=== PATIENT | female | born 1965 | race Caucasian/White ===

== ENCOUNTER 2017-02-22 12:16 | Inpatient (IN) | payer OTHER ==
[2017-02-22] MEDS ORDERED: IOPAMIDOL 300 (61%) 100 ML VIAL IV ONE (12:17)
[2017-02-22 12:52] LABS: SPECIFIC GRAVITY 1.015 (1.001-1.030); URINE BILIRUBIN NEGATIVE (NEGATIVE); URINE BLOOD NEGATIVE (NEGATIVE); URINE GLUCOSE (UA) NEGATIVE (NEGATIVE); URINE LEUKOCYTE ESTERASE TRACE (NEGATIVE); URINE NITRITE NEGATIVE (NEGATIVE); URINE PROTEIN 1+ (NEGATIVE); URINE UROBILINOGEN NORMAL (0-1 mg/dl)
[2017-02-22] MEDS ORDERED: ONDANSETRON 4 MG/2ML 2 ML VIAL ONE (12:53)
[2017-02-22] MEDS ORDERED: SODIUM CHLORIDE 0.9% 1,000 ML ONE (12:53)
[2017-02-22] MEDS ORDERED: HYDROMORPHONE HCL 1 MG/ML SYRINGE ONE ×2 (12:54→15:53)
[2017-02-22 12:58] LABS: URINE APPEARANCE CLEAR; URINE COLOR AMBER
[2017-02-22 13:04] LABS: ABSOLUTE NEUTROPHIL COUNT 9.8 K/mm3 (1.8-7.7); BASO % 0.3 % (0.2-1.0); EOS # 0.1 (0.0-0.5); EOS % 0.7 % (0.9-2.9); HEMATOCRIT 46.3 % (37.0-47.0); HEMOGLOBIN 15.5 gm/l (12.0-16.0); IMM NEUT% 0.3 % (0-1); LYMPH # 1.7 (1.0-4.8); LYMPH % 14.1 % (15-45); MEAN CORPUSCULAR HEMOGLOBIN 30.5 pg (27.0-31.0); MEAN CORPUSCULAR HGB CONC 33.5 g/dl (33.0-37.0); MEAN PLATELET VOLUME 11.4 fl (7.4-10.4); MONO # 0.6 (0.0-0.8); MONO % 4.8 % (4-12); NEUT % 79.8 % (43-75); PLATELET COUNT 287 K/mm3 (130-400); RED CELL DISTRIBUTION WIDTH 12.4 % (11.5-14.5)
[2017-02-22 13:11] LABS: URINE RBC 0-1 /hpf
[2017-02-22 13:12] LABS: URINE BACTERIA 1+
[2017-02-22 13:17] LABS: ALB/GLOB RATIO 1.3 (>1.0); ALBUMIN 5.1 gm/dL (3.5-5.7); CALCIUM 10.4 mg/dL (8.6-10.3)
--- NOTE | 2017-02-22 15:49 | CT ---
Exam Type: ABD/PELVIS W/ CON Date and Time: 02/22/2017 1:00 PM Clinical information: Lower abdominal pain for one day. Comparison: CT abdomen pelvis with contrast 03/11/2015 Technique: Contiguous axial 4 mm images were obtained from the lung bases through the pelvis after the uneventful IV administration of 100 cc of Isovue-300. Sagittal and coronal reformations with high resolution lung algorithm images were also obtained at this time. CT DI: 17.4 DLP 825.3 FINDINGS: Lung base :No abnormality is identified at the lung bases. Visualized heart:There is no pericardial effusion. LIVER: A vague area of hypodensity is present within the anterior segment right lobe of the liver as seen on image 22 measuring approximately 2.4 x 2.3 cm. This was identified as a hemangioma on prior study. The remainder of the liver is unremarkable. BILE DUCTS: normal caliber. GALLBLADDER: Surgically absent. PANCREAS: within normal limits. SPLEEN: within normal limits. ADRENALS: within normal limits. KIDNEYS: within normal limits. Stomach and small BOWEL: Stomach is unremarkable. The duodenum and the proximal jejunum are normal. Multiple dilated loops of mid jejunal and ileal bowel are identified with multiple air-fluid levels. Transition zone may be present in the right lower quadrant within the terminal ileum just before the cecum. This is best seen on coronal image 29 and axial image 78. However, just past this the bowel again becomes dilated and fluid-filled as it enters into the cecum. There is mild inflammatory change to the terminal ileum as seen on prior study. Large bowel: Air and stool are noted within the large bowel. Much of the distal large bowel is decompressed limiting assessment. LYMPH NODES: No enlarged mesenteric lymph nodes. PERITONEUM: no ascites or free air, no fluid collection. VESSELS: within normal limits RETROPERITONEUM: within normal limits. ABDOMINAL WALL: within normal limits. Bladder: Decompressed. Uterus and adnexa: IUD is present. Otherwise unremarkable. BONES: within normal limits. IMPRESSION: Small bowel obstruction is identified with transition zone in the expected location of the terminal ileum though bowel loop after this point are also dilated and fluid-filled. Otherwise no specific transition zone is noted. Differential considerations could include ileus or less likely enteritis. As mentioned on prior study consideration for inflammatory bowel disease could also be made. As the patient has had multiple prior surgeries and adhesions is most likely. Other incidental findings as above. Findings were called to Dr. Hurt at approximately 1545 hours on 02/22/2017.
[2017-02-22] MEDS ORDERED: SODIUM CHLORIDE 0.9% 100 ML IV ONE (15:53)
[2017-02-22] MEDS ORDERED: PROMETHAZINE HCL 25 MG/ML VIAL ONE (15:53)
[2017-02-22 16:40] VITALS: BMI 34.6
[2017-02-22] MEDS ORDERED: SODIUM CHLORIDE 0.9% FLUSH 10 ML ONE (16:41)
[2017-02-22] MEDS ORDERED: BLISTEX LIPSTICK 1 EACH TP PRN (16:53)
[2017-02-22] MEDS ORDERED: MENTHOL/CETYLPYRD 1 EACH LOZENGE PO PRN (16:53)
[2017-02-22] MEDS ORDERED: PROMETHAZINE HCL 25 MG/ML VIAL IM PRN (16:58)
--- NOTE | 2017-02-22 17:06 | PDOC1 ---
HPI: Date of Admission: 02/22/17 Chief Complaint: abdominal pain/nausea History of Present Illness: 51 y/o F with history of bowel resection for endometriosis who had a sudden onset of pain/nausea/vomiting last night. It continued to get worse over the night and she couldn't sleep. She has had several episodes of this before and could go on a liquid diet to prevent a full bowel obstruction. She says these last 2 times were more of a sudden onset and she couldn't do that. No fevers/chills. No sick contacts. BM today and passing gas this morning. Pain is in lower abdomen and radiates to lower back. PMH: Migraines PSH: appendectomy, endometriosis w/ small bowel obstruction, lap gaurav, IUD, breast biopsy Medications: effexor Allergies: NKDA FH: reviewed and non contributory SH: denies tobacco, EtOH or illicit drug use. - Review of Systems Reports Nausea, Reports Vomiting, Denies Chest Pain, Denies Shortness of Breath , Denies Cough, Denies Sputum, Denies Diarrhea, Denies Headache H&P Objective GS - Objective Vital Signs Temperature 98.0 F 02/22/17 16:20 Pulse Rate 74 02/22/17 16:20 Respiratory Rate 20 02/22/17 16:20 Blood Pressure 120/76 02/22/17 16:20 O2 Saturation by Pulse Oximetry 98 02/22/17 16:20 Oxygen Delivery Method Room Air Oxygen Flow Rate 0 General: Alert, Oriented x3, Cooperative, No Acute Distress HEENT: Atraumatic, PERRLA, EOMI, Mucous membr. moist/pink Lungs: Clear to Auscultation Bilaterally, Normal Air Movement Cardiovascular: Regular Rate and Rhythm, Normal S1, Normal S2. negative: Murmur Abdomen: Soft, Tenderness (RLQ and Suprapubic, no peritoneal signs, mild), Non- Distended, Hypoactive Bowel Sounds Skin: Normal Color, Warm, Dry, Intact Psych/Mental Status: Normal Affect, Normal Mood - Assessment/ Plan (1) Partial small bowel obstruction Current Visit: No Status: Acute Code: K56.69Wimarcos place NG tube for her nausea/vomiting and to help relieve pressure on her bowel Hopefully that will do the trick of helping her bowel obstruction resolve. She is very concerned with the Effexor so I will prescribe that for tonight and clamp her NG tube. recheck labs in the AM.
[2017-02-22] MEDS ORDERED: PUMP TUBING ONE (17:19)
[2017-02-22] MEDS: LACTATED RINGERS 1,000 ML IV SCH (17:26)
[2017-02-22] MEDS ORDERED: SODIUM CHLORIDE 500 IRRIG BOT 500 ML IR ONE (17:31)
[2017-02-22] MEDS: HYDROMORPHONE HCL 1 MG/ML SYRINGE IV PRN ×2 (18:29→22:40)
[2017-02-22] MEDS: VENLAFAXINE HCL 75 MG TABLET PO SCH (20:55)
[2017-02-23] MEDS: HYDROMORPHONE HCL 1 MG/ML SYRINGE IV PRN ×2 (01:22→05:09)
[2017-02-23] MEDS: LACTATED RINGERS 1,000 ML IV SCH ×4 (01:31→23:51)
[2017-02-23 05:52] LABS: HEMATOCRIT 36.8 % (37.0-47.0); HEMOGLOBIN 11.8 gm/l (12.0-16.0); MEAN CELL VOLUME 94.6 fl (81.0-99.0); MEAN CORPUSCULAR HEMOGLOBIN 30.3 pg (27.0-31.0); MEAN CORPUSCULAR HGB CONC 32.1 g/dl (33.0-37.0); RED CELL DISTRIBUTION WIDTH 12.8 % (11.5-14.5)
[2017-02-23 06:03] LABS: ALB/GLOB RATIO 1.3 (>1.0); ALBUMIN 3.5 gm/dL (3.5-5.7); CALCIUM 8.1 mg/dL (8.6-10.3)
[2017-02-23] MEDS: HYDROMORPHONE HCL 0.5 MG/0.5 ML SYRINGE IV PRN ×6 (08:17→23:22)
[2017-02-23] MEDS ORDERED: ONDANSETRON 4 MG/2ML 2 ML VIAL IV PRN (08:20)
[2017-02-23] MEDS ORDERED: SUMATRIPTAN SUCCINATE 6 MG/0.5 ML VIAL SUB-Q PRN (16:45)
--- NOTE | 2017-02-23 17:36 | RAD ---
Name: LUDA TEJEDA Exam: Acute abdominal series Comparison: Abdomen dated 03/14/2015 Clinical history: Small bowel obstruction Findings: Single view of the chest is submitted. Heart, mediastinum and hilar structures are within normal limits. There is no failure, infiltrate, pleural effusion or pneumothorax. Nasogastric tube tip is projected at the gastric bubble and left upper quadrant. Both supine and upright views of the abdomen are submitted. There is air in stomach, small bowel and colon. Small bowel loops in the right midabdomen are minimally prominent. There is some colon air. There is no free peritoneal air. Gallbladder is surgically absent. IUD is in place. Regional skeleton is unremarkable. Impression: 1. No acute cardiac pulmonary process 2. Nasogastric tube with its tip coiled in the left upper quadrant 3. Prior cholecystectomy. IUD is identified. 4. Nonspecific bowel gas pattern. There is no overt bowel dilation and there is no free intracranial air.
[2017-02-23] MEDS: VENLAFAXINE HCL 75 MG TABLET PO SCH (20:09)
[2017-02-24] MEDS: LACTATED RINGERS 1,000 ML IV SCH ×3 (00:07→16:29)
[2017-02-24] MEDS: HYDROMORPHONE HCL 0.5 MG/0.5 ML SYRINGE IV PRN ×3 (05:15→16:31)
[2017-02-24] MEDS ORDERED: ISOMETHEPTENE PO PRN (07:46)
[2017-02-24] MEDS ORDERED: ACETAMINOPHEN PO PRN (07:46)
[2017-02-24] MEDS ORDERED: [UNRECOGNIZED DRUG - OTHER] PO PRN (07:46)
[2017-02-24] MEDS: HYDROMORPHONE HCL 1 MG/ML SYRINGE IV PRN ×4 (08:22→23:05)
--- NOTE | 2017-02-24 09:20 | PDOC43 ---
- Subjective Late entry: seen 02/23/17 at 7:30 Subjective: Reports Pain Tolerable (improving), Reports Other (headache), Denies Flatus, Denies Bowel Movement, Denies Vomitting, Denies Nausea, Denies Distention (much improved) - Objective Vital Signs Temperature 98.1 F 02/24/17 07:00 Pulse Rate 73 02/24/17 07:00 Respiratory Rate 20 02/24/17 07:00 Blood Pressure 119/74 02/24/17 07:00 O2 Saturation by Pulse Oximetry 99 02/24/17 07:00 Oxygen Delivery Method Room Air Oxygen Flow Rate 0 Laboratory 02/23/17 05:15 02/23/17 05:15 Active Medication Orders Category Date Time Status Hydromorphone HCl [Dilaudid] Med 02/22/17 17:02 Active 0.5 - 1 mg IV Q1H PRN Isometheptene/APAP/Dichlphen [Midrin] Med 02/24/17 07:46 Active 1 each PO Q4H PRN Ondansetron 4 mg/2ml Vial [Zofran] Med 02/23/17 08:20 Active 4 mg IV Q6H PRN Promethazine HCl [Phenergan] Med 02/22/17 16:58 Active 25 mg IM Q6H PRN Sodium Chloride 0.9% Flush [Normal Saline 10ml Flush] Med 02/23/17 01:00 Active 10 ml IV Q8HR Sumatriptan Succinate [Imitrex] Med 02/23/17 16:45 Active 6 mg SUB-Q Q1H PRN Venlafaxine HCl [Effexor] Med 02/22/17 20:00 Active 225 mg PO QPM Intake and Output 02/22/17 02/23/17 02/24/17 23:59 23:59 23:59 Intake Total 1457 1492 Output Total 1375 1570 Balance 82 -78 Tubes and Drains Output NG/OG Output 70 General: Alert, Oriented x3, Cooperative, No Acute Distress HEENT: Atraumatic, PERRLA, EOMI, Mucous membr. moist/pink Lungs: Clear to Auscultation Bilaterally, Normal Air Movement Cardiovascular: Regular Rate and Rhythm, Normal S1, Normal S2, No Murmur Abdomen: Soft, Tenderness (mild RLQ), Non-Distended, Hypoactive Bowel Sounds Skin: Normal Color, Warm, Dry, Intact, No Rash Psych/Mental Status: Normal Affect, Normal Mood - Assessment/ Plan (1) Partial small bowel obstruction Status: AcuteAssessment/ Plan: HD2 Will monitor NG output encourage ambulation imitrex for headache WBC down and pain/bloating better. supportive care
--- NOTE | 2017-02-24 09:23 | PDOC43 ---
- Subjective Subjective: Reports Pain Tolerable, Denies Flatus, Denies Bowel Movement, Denies Vomitting, Denies Nausea, Denies Distention - Objective Vital Signs Temperature 98.1 F 02/24/17 07:00 Pulse Rate 73 02/24/17 07:00 Respiratory Rate 20 02/24/17 07:00 Blood Pressure 119/74 02/24/17 07:00 O2 Saturation by Pulse Oximetry 99 02/24/17 07:00 Oxygen Delivery Method Room Air Oxygen Flow Rate 0 Laboratory 02/23/17 05:15 02/23/17 05:15 Active Medication Orders Category Date Time Status Hydromorphone HCl [Dilaudid] Med 02/22/17 17:02 Active 0.5 - 1 mg IV Q1H PRN Isometheptene/APAP/Dichlphen [Midrin] Med 02/24/17 07:46 Active 1 each PO Q4H PRN Ondansetron 4 mg/2ml Vial [Zofran] Med 02/23/17 08:20 Active 4 mg IV Q6H PRN Promethazine HCl [Phenergan] Med 02/22/17 16:58 Active 25 mg IM Q6H PRN Sodium Chloride 0.9% Flush [Normal Saline 10ml Flush] Med 02/23/17 01:00 Active 10 ml IV Q8HR Sumatriptan Succinate [Imitrex] Med 02/23/17 16:45 Active 6 mg SUB-Q Q1H PRN Venlafaxine HCl [Effexor] Med 02/22/17 20:00 Active 225 mg PO QPM Intake and Output 02/22/17 02/23/17 02/24/17 23:59 23:59 23:59 Intake Total 1457 1492 Output Total 1375 1570 Balance 82 -78 Tubes and Drains Output NG/OG Output 70 General: Alert, Oriented x3, Cooperative, No Acute Distress HEENT: Atraumatic, PERRLA, EOMI, Mucous membr. moist/pink Lungs: Clear to Auscultation Bilaterally, Normal Air Movement Cardiovascular: Regular Rate and Rhythm, Normal S1, Normal S2, No Murmur Abdomen: Soft, Tenderness (about the same as yesterday), Non-Distended, Hypoactive Bowel Sounds Psych/Mental Status: Normal Affect, Normal Mood - Assessment/ Plan (1) Partial small bowel obstruction Status: AcuteAssessment/ Plan: HD3 Says she isn't passing gas yet but feels stomach cramps NG with minimal output and NG in good position on films nonspecific gas pattern on films will trial clamping NG and pull if no nausea sips if we can get rid of NG, but I advised if she doesn't want anything don't drink Will try Mitrin for migraine after NG out Will try to catch her up on Effexor after NG out by giving a dose. continue ambulation today.
[2017-02-24] MEDS: VENLAFAXINE HCL 75 MG TABLET PO SCH (19:39)
[2017-02-25] MEDS: LACTATED RINGERS 1,000 ML IV SCH ×3 (00:28→17:30)
[2017-02-25] MEDS: HYDROMORPHONE HCL 0.5 MG/0.5 ML SYRINGE IV PRN ×3 (02:37→21:12)
[2017-02-25 06:12] LABS: HEMATOCRIT 37.3 % (37.0-47.0); HEMOGLOBIN 11.7 gm/l (12.0-16.0); MEAN CELL VOLUME 97.1 fl (81.0-99.0); MEAN CORPUSCULAR HEMOGLOBIN 30.5 pg (27.0-31.0); MEAN CORPUSCULAR HGB CONC 31.4 g/dl (33.0-37.0); RED CELL DISTRIBUTION WIDTH 12.3 % (11.5-14.5)
--- NOTE | 2017-02-25 08:27 | PDOC43 ---
- Subjective Subjective: Reports Pain Tolerable (no change), Reports Other (taking in good amount of liquid), Denies Flatus, Denies Bowel Movement, Denies Bloating, Denies Vomitting, Denies Nausea, Denies Distention, Denies Fever, Denies Chills - Objective Vital Signs Temperature 98.1 F 02/25/17 07:15 Pulse Rate 74 02/25/17 07:15 Respiratory Rate 16 02/25/17 07:15 Blood Pressure 116/74 02/25/17 07:15 O2 Saturation by Pulse Oximetry 93 02/25/17 07:15 Oxygen Delivery Method Room Air Oxygen Flow Rate 0 Laboratory 02/25/17 05:30 02/23/17 05:15 02/25/17 05:30 RBC 3.84 L MCHC 31.4 L Active Medication Orders Category Date Time Status Hydromorphone HCl [Dilaudid] Med 02/22/17 17:02 Active 0.5 - 1 mg IV Q1H PRN Isometheptene/APAP/Dichlphen [Midrin] Med 02/24/17 07:46 Active 1 each PO Q4H PRN Ondansetron 4 mg/2ml Vial [Zofran] Med 02/23/17 08:20 Active 4 mg IV Q6H PRN Promethazine HCl [Phenergan] Med 02/22/17 16:58 Active 25 mg IM Q6H PRN Sodium Chloride 0.9% Flush [Normal Saline 10ml Flush] Med 02/23/17 01:00 Active 10 ml IV Q8HR Venlafaxine HCl [Effexor] Med 02/22/17 20:00 Active 225 mg PO QPM Intake and Output 02/23/17 02/24/17 02/25/17 23:59 23:59 23:59 Intake Total 1457 3186 1893 Output Total 1375 3295 2700 Balance 82 -109 -807 General: Alert, Oriented x3, Cooperative, No Acute Distress HEENT: Atraumatic, PERRLA, EOMI, Mucous membr. moist/pink Lungs: Clear to Auscultation Bilaterally, Normal Air Movement Cardiovascular: Regular Rate and Rhythm, Normal S1, Normal S2, No Murmur Abdomen: Soft, Tenderness (mild), Non-Distended, Hypoactive Bowel Sounds Skin: Normal Color, Warm, Dry, Intact, No Rash Psych/Mental Status: Normal Affect, Normal Mood - Assessment/ Plan (1) Partial small bowel obstruction Status: AcuteAssessment/ Plan: HD4 NG removed yesterday and drinking some clears no nausea, but says not passing gas up ambulating pain not improving but no elevation in WBC and not getting worse. Continue supportive care. Clears but don't push, let her have what she wants.
[2017-02-25] MEDS: HYDROMORPHONE HCL 1 MG/ML SYRINGE IV PRN (08:34)
[2017-02-25] MEDS: VENLAFAXINE HCL 75 MG TABLET PO SCH (19:01)
[2017-02-26] MEDS: LACTATED RINGERS 1,000 ML IV SCH ×2 (01:34→08:53)
[2017-02-26 06:10] LABS: HEMATOCRIT 37.1 % (37.0-47.0); HEMOGLOBIN 12.3 gm/l (12.0-16.0); MEAN CELL VOLUME 91.4 fl (81.0-99.0); MEAN CORPUSCULAR HEMOGLOBIN 30.3 pg (27.0-31.0); MEAN CORPUSCULAR HGB CONC 33.2 g/dl (33.0-37.0); RED CELL DISTRIBUTION WIDTH 12.1 % (11.5-14.5)
[2017-02-26 07:28] VITALS: BP 102/71
--- NOTE | 2017-02-27 09:45 | DS ---
Aquiles Crespo [id number] : 1965 DATE OF ADMISSION: 02/22/2017 DATE OF DISCHARGE: 02/26/2017 ADMISSION DIAGNOSIS: Small bowel obstruction, partial. DISCHARGE DIAGNOSIS: Small bowel obstruction, partial. PROCEDURE: None. CONSULTATIONS: None. HOSPITAL COURSE: This is a 51-year-old female that was admitted after noticing that she was having bloating and nausea. She has had episodes similar to this in the past. She has had abdominal surgeries and some bowel resection in the past, so she has had episodes of obstruction. Normally she says she just cuts back to a liquid diet when she feels the onset of it and she gets past it, but the last couple of times that this has happened it has been more of a sudden onset and she has not been able to just go on a liquid diet to resolve the symptoms. She felt this starting in the morning and by the afternoon she was throwing up and just sick, so she came to the emergency department. She has abdominal pain in the right lower quadrant and nausea and vomiting as well as bloating. She says she is not passing gas. She feels stuff moving around, some kind of cramping pain, but she just overall is not feeling good. CT scan shows signs of a small bowel obstruction, but there is air in the colon, so she was given an NG tube on admission. Initially it put out about 500, but then really did not put out anything after that, so after a day of the NG tube and she was feeling not so bloated on it we clamped it the following day and she had no bloating or nausea with it clamped, so I decided to go ahead and discontinue it. I started her on clear liquids. She said she was not passing gas, but felt like she would have been more backed up and bloated if this was actually true. She tolerated the clear liquids and then I slowly advanced her diet when she was feeling better. Pain was improving and by the sixth she was able to go home in good condition. She is to follow up with her primary care physician and she will call if she has any issues. She was not given any pain medication or any other new prescriptions. JOB: [id number]
== END 2017-02-26 12:15 | disposition home or self-care (01) | DRG 390 ==
LOC: ED 12:16 → MS 16:04 → OBSVTOIN 16:54
PROVIDERS: ADMIT Surgery; ATTEND Surgery
PROC: 0D9670Z Drainage of Stomach with Drainage Device, Via Natural or Artificial Opening (ICD-10-PCS; principal; 2017-02-22)
DX: K56.60 Unspecified intestinal obstruction (principal); R51 Headache